=== PATIENT | female | born 1990 | race Asian ===

== ENCOUNTER 2022-10-27 12:57 | Emergency (ER) | payer OTHER ==
[~2022-10-27] VITALS: Ht 165.1 cm; Wt 60.0 kg
[2022-10-27 15:51] VITALS: BP 144/90
[2022-10-27] MEDS ORDERED: ONDA4TAB50 MT (16:43)
[2022-10-27] MEDS ORDERED: MED4 MT (16:43)
== END 2022-10-27 17:14 | disposition home or self-care (01) ==
LOC: ER 12:57
DX: R21 Rash and other nonspecific skin eruption (principal); J45.909 Unspecified asthma, uncomplicated
CPT/HCPCS: 99281